=== PATIENT | female | born 1995 | race Native Hawaiian/Other Pacific Islander ===

== ENCOUNTER → 2018-01-09 | Outpatient (CLI) | payer OTHER | LOC: M RAD 09:34 | DX: M25.551 Pain in right hip (principal) | CPT/HCPCS: 78315 ==

== ENCOUNTER 2018-08-25 13:11 | Emergency (ER) | payer OTHER ==
[~2018-08-25] VITALS: Ht 165.1 cm; Wt 83.9 kg
[2018-08-25] MEDS ORDERED: PRENTAB56 (13:21)
[2018-08-25] MEDS ORDERED: BUTALB-ACETAMIN-CAFF (13:21)
[2018-08-25] MEDS ORDERED: ONDANSETRON 4MG/2ML VIAL (J2405) IV ONE (13:45)
[2018-08-25] MEDS ORDERED: NS 1,000 ML IV ONE (13:45)
[2018-08-25] MEDS ORDERED: ONDA4TAB6 PO (15:45)
[2018-08-25 15:51] VITALS: BP 115/57
== END 2018-08-25 15:55 | disposition home or self-care (01) ==
LOC: M ED 13:11
DX: O99.89 Other specified diseases and conditions complicating pregnancy, childbirth and the puerperium (principal); K52.9 Noninfective gastroenteritis and colitis, unspecified; Z3A.26 26 weeks gestation of pregnancy
CPT/HCPCS: 81001; 96361; 96374; 99284; J2405